=== PATIENT | male | born 1960 | race Caucasian/White ===

== ENCOUNTER → 2020-10-04 | Outpatient (CLI) | payer OTHER | LOC: LAB SHORT 10:15 → LAB 10:15 | DX: L08.0 Pyoderma (principal) | CPT/HCPCS: 87070; 87106; 87205 ==

== ENCOUNTER 2021-11-29 20:10 | Inpatient (IN) | payer OTHER ==
[~2021-11-29] VITALS: Ht 182.9 cm; Wt 100.0 kg
[2021-11-30 04:16] LABS: BASOPHILS ABSOLUTE AUTO 0.08 K/mm3 (0.00-0.23); BASOPHILS PERCENT AUTO 1 % (0-2); EOSINOPHILS ABSOLUTE AUTO 0.12 K/mm3 (0.00-0.68); EOSINOPHILS PERCENT AUTO 1 % (0-6); Hematocrit 40.4 % (37.0-53.0); Hemoglobin 13.5 g/dL (13.5-17.5); IMMATURE GRAN ABSOLUTE AUTO 0.05 K/mm3 (0.00-0.10); IMMATURE GRAN PERCENT AUTO 0 % (0-1); LYMPHOCYTES PERCENT AUTO 15 % (21-46); MONOCYTES ABSOLUTE AUTO 1.47 K/mm3 (0.16-1.47); MONOCYTES PERCENT AUTO 11 % (4-13); Mean Corpuscular HGB 32.5 pg (26.0-34.0); Mean Corpuscular HGB Conc 33.4 g/dL (31.5-36.5); Mean Corpuscular Volume 97 fL (80-100); Mean Platelet Volume 9.1 fL (9.1-12.4); NEUTROPHILS ABSOLUTE AUTO 10.12 K/mm3 (1.96-9.15); NEUTROPHILS PERCENT AUTO 73 % (41-73); Platelet Count 335 K/mm3 (150-400); RDW Coefficient Variation 13.3 % (11.7-14.2); RDW Standard Deviation 47.9 fL (35.1-46.3); Red Blood Cell Count 4.16 M/mm3 (4.30-5.90); White Blood Cell Count 13.84 K/mm3 (4.00-11.30)
[2021-11-30 04:43] LABS: Albumin, Blood 3.6 g/dL (3.4-5.0); Bilirubin, Total 0.4 mg/dL (0.1-1.0); Bun/Creatinine Ratio 20.1 (12.0-20.0); Calcium, Blood 8.5 mg/dL (8.5-10.1); Creatinine, Blood 0.75 mg/dL (0.60-1.20); Globulin, Blood 3.5 g/dL (2.2-4.0); Potassium, Blood 3.7 mmol/L (3.5-5.5); Total Protein, Blood 7.1 g/dL (6.4-8.2)
--- NOTE | 2021-11-30 06:32 | NUR ---
SHIFT SUMMARY S/P R ANKLE FX, A/O X4, VSS, NPO FOR SURGERY TODAY, PAIN MINIMALLY MANAGED WITH ORDERED FENTANYL WHICH HELPS BRIEFLY BUT IS VERY SHORT IN ANY PROVIDED RELIEF, ADMISSION COMPLETED OTHER THAN MED LIST WHICH HIS WILL BRING IN TODAY. NO ACUTE EVENTS THIS SHIFT, CALL LIGHT IN REACH, WILL CTM AND REPORT TO ONCOMING DAY RN.
[2021-11-30] MEDS ORDERED: ATOR10 PO (09:49)
[2021-11-30] MEDS ORDERED: ESCI10 PO (09:50)
[2021-11-30] MEDS ORDERED: JARDIANCE25 MG PO (09:50)
[2021-11-30] MEDS ORDERED: METO25ER PO (09:50)
[2021-11-30] MEDS ORDERED: MESA250ER PO (09:51)
[2021-11-30 10:42] LABS: SARS-Cov-2 (COVID-19) PCR, MMC NEGATIVE (NEGATIVE)
--- NOTE | 2021-11-30 10:43 | NUR ---
Spiritual Care Request. Pt. is awake in bed and welcomes my visit. Pt. is pleasant but does display evidence of visceral pain in the foot/ankle region. Facilitate a life review and establish rapport. Pt. displays evidence of engagement and awareness. Pt. is a man of brina. Visit is interruptrd by home health care case manager and then a physician. 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
--- NOTE | 2021-11-30 16:30 | NUR ---
PATIENT LEFT FOR THE OR.
--- NOTE | 2021-12-01 07:31 | NUR ---
SHIFT SUMMARY POD1 R ANKLE ORIF, A/OX4, VSS, TOLERATING PO, PAIN SLIGHTLY BETTER MANAGED THOUGH HE WAS STILL NEEDING SOME IV NARCOTICS TO GET SOME SLEEP, PT HAD A PERIODS OF APNEA OBSERVED BY THIS RN THAT LASTED ABOUT 5 SECONDS BEFORE RESPIRATIONS RESUMED. NO ACUTE EVENTS THIS SHIFT, CALL LIGHT IN REACH, REPORT GIVEN TO DAY RN.
[2021-12-01] MEDS ORDERED: Acetaminophen650 M1 PO (14:51)
[2021-12-01] MEDS ORDERED: DOCU100 PO (14:52)
[2021-12-01] MEDS ORDERED: Dilaudid 2 mg Ta2 MG PO (14:54)
--- NOTE | 2021-12-01 15:54 | NUR ---
DISCHARGE SUMMARY PT A&OX4, VSS/RA, GRAEME PO, VOIDING WELL, PAIN MANAGED WITH NORCO, AMB FWW SBA, NWB, TO BRP. IV DC'D. DC INS PROVIDED. PT REP UNDERSTANDING THOSE INSTRUCTIONS INCLUDING FU WITH PCP AND ORTHO SURGEON, NWB/KEEP SPLINT CDI/CALL SURGEON WITH ANY QUESTIONS, PAIN SCRIPT PROVIDED. LEFT VIA WC WITH TRANSPORT TO GO HOME WITH ALL PERSONAL POSSESSIONS.
== END 2021-12-01 15:10 | DRG 493 ==
LOC: ER 20:10 → SURS 20:11
PROVIDERS: Internal Medicine Gastroenterology; Orthopaedic Surgery; ADMIT Family Medicine
PROC: 0QSJXZZ Reposition Right Fibula, External Approach (ICD-10-PCS; 2021-11-29)
PROC: 0QSJ04Z Reposition Right Fibula with Internal Fixation Device, Open Approach (ICD-10-PCS; principal; 2021-11-30 16:45)
DX: S82.831A Other fracture of upper and lower end of right fibula, initial encounter for closed fracture (principal); K51.90 Ulcerative colitis, unspecified, without complications; Z68.44 Body mass index [BMI] 60.0-69.9, adult; S82.301A Unspecified fracture of lower end of right tibia, initial encounter for closed fracture; V80.010A Animal-rider injured by fall from or being thrown from horse in noncollision accident, initial encounter; Z20.822 Contact with and (suspected) exposure to COVID-19; S93.401A Sprain of unspecified ligament of right ankle, initial encounter; I10 Essential (primary) hypertension; E11.9 Type 2 diabetes mellitus without complications; Z90.49 Acquired absence of other specified parts of digestive tract; Z98.890 Other specified postprocedural states; Z88.0 Allergy status to penicillin; Z72.89 Other problems related to lifestyle; E66.9 Obesity, unspecified
CPT/HCPCS: 27788; 36415; 73590; 73600; 80053; 82947; 85025; 96374-59; 96375; 96375-59; 96376; 96376-59; 97116; 97162; 97530; 99152; 99285-25; A9270; C1713; G0378; J0690; J1100; J1170; J1885; J2250; J2270; J2405; J2704; J2795; J3010; J7030; J7120; U0004

== ENCOUNTER 2022-06-27 10:29 | Emergency (ER) | payer OTHER ==
[~2022-06-27] VITALS: Ht 182.9 cm; Wt 106.6 kg
[~2022-06-27 10:29] MED LIST: ATOR10 PO; Acetaminophen650 M1 PO; DOCU100 PO; Dilaudid 2 mg Ta2 MG PO; ESCI10 PO; JARDIANCE25 MG PO; MESA250ER PO; METO25ER PO
[2022-06-27 11:01] LABS: BASOPHILS ABSOLUTE AUTO 0.04 K/mm3 (0.00-0.23); BASOPHILS PERCENT AUTO 1 % (0-2); EOSINOPHILS ABSOLUTE AUTO 0.16 K/mm3 (0.00-0.68); EOSINOPHILS PERCENT AUTO 3 % (0-6); Hematocrit 43.3 % (37.0-53.0); Hemoglobin 14.8 g/dL (13.5-17.5); IMMATURE GRAN ABSOLUTE AUTO 0.03 K/mm3 (0.00-0.10); IMMATURE GRAN PERCENT AUTO 1 % (0-1); LYMPHOCYTES ABSOLUTE AUTO 1.19 K/mm3 (0.84-5.20); LYMPHOCYTES PERCENT AUTO 21 % (21-46); MONOCYTES ABSOLUTE AUTO 0.69 K/mm3 (0.16-1.47); MONOCYTES PERCENT AUTO 12 % (4-13); Mean Corpuscular HGB 32.5 pg (26.0-34.0); Mean Corpuscular HGB Conc 34.2 g/dL (31.5-36.5); Mean Corpuscular Volume 95 fL (80-100); Mean Platelet Volume 9.2 fL (9.1-12.4); NEUTROPHILS ABSOLUTE AUTO 3.48 K/mm3 (1.96-9.15); NEUTROPHILS PERCENT AUTO 62 % (41-73); Platelet Count 264 K/mm3 (150-400); RDW Standard Deviation 45.4 fL (35.1-46.3); Red Blood Cell Count 4.56 M/mm3 (4.30-5.90); White Blood Cell Count 5.59 K/mm3 (4.00-11.30)
[2022-06-27 11:21] LABS: Albumin, Blood 3.4 g/dL (3.4-5.0); Albumin/Globulin Ratio 0.8 (0.8-1.8); Bilirubin, Total 0.3 mg/dL (0.1-1.0); Bun/Creatinine Ratio 15.2 (12.0-20.0); C-REACTIVE PROTEIN, EXT RANGE 4.67 mg/dL (0.000-0.300); Calcium, Blood 8.5 mg/dL (8.5-10.1); Creatinine, Blood 0.86 mg/dL (0.60-1.20); Potassium, Blood 3.6 mmol/L (3.5-5.5); Total Protein, Blood 7.4 g/dL (6.4-8.2)
[2022-06-27] MEDS ORDERED: PRED20 PO (12:35)
== END 2022-06-27 12:50 | disposition home or self-care (01) ==
LOC: ER 10:29
PROVIDERS: Physician Assistant
DX: K51.911 Ulcerative colitis, unspecified with rectal bleeding (principal); E11.9 Type 2 diabetes mellitus without complications; I10 Essential (primary) hypertension; Z88.0 Allergy status to penicillin; Z79.899 Other long term (current) drug therapy
CPT/HCPCS: 36415; 80053; 83735; 85025; 86140; 96374; 99283-25; J2920; J7030

== ENCOUNTER 2024-12-27 10:14 | Emergency (ER) | payer BC ==
[~2024-12-27] VITALS: Ht 182.9 cm; Wt 117.9 kg
[~2024-12-27 10:14] MED LIST changes: +PRED20 PO
[2024-12-27 10:56] LABS: BASOPHILS ABSOLUTE AUTO 0.11 K/mm3 (0.00-0.23); BASOPHILS PERCENT AUTO 1 % (0-2); EOSINOPHILS ABSOLUTE AUTO 0.15 K/mm3 (0.00-0.68); EOSINOPHILS PERCENT AUTO 1 % (0-6); Hematocrit 41.4 % (37.0-53.0); Hemoglobin 13.6 g/dL (13.5-17.5); IMMATURE GRAN ABSOLUTE AUTO 0.07 K/mm3 (0.00-0.10); IMMATURE GRAN PERCENT AUTO 1 % (0-1); LYMPHOCYTES ABSOLUTE AUTO 1.78 K/mm3 (0.84-5.20); LYMPHOCYTES PERCENT AUTO 12 % (21-46); MONOCYTES ABSOLUTE AUTO 1.01 K/mm3 (0.16-1.47); MONOCYTES PERCENT AUTO 7 % (4-13); Mean Corpuscular HGB Conc 32.9 g/dL (31.5-36.5); Mean Corpuscular Volume 99 fL (80-100); NEUTROPHILS ABSOLUTE AUTO 12.13 K/mm3 (1.96-9.15); NEUTROPHILS PERCENT AUTO 80 % (41-73); NRBC ABSOLUTE 0.00 K/mm3 (0.00-0.02); NRBC Auto 0.0 /100 WBC (0.0-0.2); Platelet Count 350 K/mm3 (150-400); RDW Coefficient Variation 12.5 % (11.7-14.2); RDW Standard Deviation 45.6 fL (35.1-46.3)
[2024-12-27 11:08] LABS: Alanine Aminotransfer (ALT/SGP 51.0 U/L (12-78); Albumin, Blood 3.7 g/dL (3.4-5.0); Albumin/Globulin Ratio 0.9 (0.8-1.8); Anion Gap 12.0 mmol/L (3-11); Aspartate Aminotrans (AST/SGOT 47.0 U/L (12-37); Bilirubin, Total 0.4 mg/dL (0.1-1.0); Blood Urea Nitrogen 16.0 mg/dL (8-24); CO2, Blood 23.0 mmol/L (21-32); Calcium, Blood 8.7 mg/dL (8.5-10.1); Chloride, Blood 101.0 mmol/L (98-108); Creatinine, Blood 0.89 mg/dL (0.60-1.20); Globulin, Blood 3.9 g/dL (2.2-4.0); Glucose, Blood 236.0 mg/dL (70-99); Potassium, Blood 4.4 mmol/L (3.5-5.5); Sodium, Blood 132.0 mmol/L (136-145); Total Protein, Blood 7.6 g/dL (6.4-8.2)
[2024-12-27] MEDS ORDERED: Atropine/Scopalam/Hyoscam/PB 5 ML UDC PO ONE (12:35)
[2024-12-27 13:15] VITALS: BP 112/78
== END 2024-12-27 13:50 | disposition home or self-care (01) ==
LOC: ER 10:14
PROVIDERS: Student in an Organized Health Care Education/Training Program
DX: R07.89 Other chest pain (principal); I10 Essential (primary) hypertension; E11.9 Type 2 diabetes mellitus without complications; E78.5 Hyperlipidemia, unspecified; Z88.0 Allergy status to penicillin; Z79.899 Other long term (current) drug therapy; Z79.2 Long term (current) use of antibiotics
CPT/HCPCS: 71046; 80053; 84484; 85025; 93005; 93010; 99285-25; A9270